=== PATIENT | female | born 1980 | race Caucasian/White ===

== ENCOUNTER 2022-06-19 07:40 | Outpatient (CLI) | payer BC, SELFPAY ==
[2022-06-19 09:41] LABS: Hematocrit 41.7 % (37.0-47.0); Hemoglobin 13.9 g/dL (12.0-15.0); Mean Corpuscular HGB Conc 33.3 g/dl (32-36); Mean Corpuscular Hemoglobin 29.8 pg (26-34); Mean Corpuscular Volume 89.5 fl (80-100); Mean Platelet Volume 9.6 fl (7.4-10.4); Platelet Count Result 393 k/mm3 (150-375); Red Blood Count 4.66 M/mm3 (4.2-5.4); Red Cell Distribution Width 13.2 % (11.5-14.5); White Blood Count 8.7 K/mm3 (4.5-10.0)
[2022-06-21 20:21] LABS: Prolactin 20.4 ng/mL (***)
== END 2022-06-19 07:41 | disposition home or self-care (01) ==
LOC: ANHLAB 07:42
PROVIDERS: Visit Provider Obstetrics & Gynecology
DX: N92.1 Excessive and frequent menstruation with irregular cycle (principal)
CPT/HCPCS: 36415; 84146; 85027

== ENCOUNTER 2022-08-10 06:56 | Outpatient (CLI) | payer BC, SELFPAY ==
[2022-08-10 08:22] LABS: Basophils Absolute Auto 0.1 K/mm3 (0.0-0.1); Basophils Percent Auto 1.2 % (0.2-1.2); Eosinophils Absolute Auto 0.7 K/mm3 (0-0.3); Hematocrit 41.6 % (37.0-47.0); Hemoglobin 14.1 g/dL (12.0-15.0); Immature Granulocyte Absolute 0.01 K/mm3 (0.00-0.031); Immature Granulocyte Percent A 0.1 % (0-0.5); Lymphocytes Absolute Auto 1.31 K/mm3 (0.9-3.2); Lymphocytes Percent Auto 19.6 % (18.3-44.2); Mean Corpuscular HGB Conc 33.9 g/dl (32-36); Mean Corpuscular Hemoglobin 29.9 pg (26-34); Mean Corpuscular Volume 88.1 fl (80-100); Mean Platelet Volume 9.1 fl (7.4-10.4); Monocytes Absolute Auto 0.5 K/mm3 (0.1-0.6); Monocytes Percent Auto 6.7 % (2.6-8.5); Neutrophils Absolute Auto 4.2 K/mm3 (1.3-6.7); Neutrophils Percent Auto 62.4 % (45.5-73.1); Platelet Count Result 422 k/mm3 (150-375); Red Blood Count 4.72 M/mm3 (4.2-5.4); Red Cell Distribution Width 13.3 % (11.5-14.5); White Blood Count 6.7 K/mm3 (4.5-10.0)
== END 2022-08-10 06:57 | disposition home or self-care (01) ==
PROVIDERS: PCP Internal Medicine; Visit Provider Internal Medicine Hematology & Oncology
DX: D47.3 Essential (hemorrhagic) thrombocythemia (principal)
CPT/HCPCS: 36415; 85025

== ENCOUNTER 2022-08-21 07:49 | Outpatient (CLI) | payer BC, SELFPAY ==
--- NOTE | 2022-08-21 08:00 | ECG_ITS ---
Measurements Intervals [place] Rate: 69 P: 19 NE: 148 QRS: -17 QRSD: 120 T: 18 QT: 392 QTc: 421 Interpretive Statements SINUS RHYTHM RIGHT BUNDLE BRANCH BLOCK BASELINE ARTIFACT- I, II, III, AVL, AVF ABNORMAL ECG NO PREVIOUS ECG AVAILABLE FOR COMPARISON Electronically Signed On 08-21-2022 8:23:05 CDT by Ever Iverson D.O.
== END 2022-08-21 07:50 | disposition home or self-care (01) ==
LOC: ANHSURGERY 08:01
PROVIDERS: PCP Internal Medicine; Visit Provider Obstetrics & Gynecology
DX: N92.1 Excessive and frequent menstruation with irregular cycle (principal); E78.00 Pure hypercholesterolemia, unspecified; Z01.818 Encounter for other preprocedural examination; I45.10 Unspecified right bundle-branch block
CPT/HCPCS: 36415; 86850; 86900; 86901; 93005

== ENCOUNTER 2022-08-23 01:08 | Day surgery (SDC) | payer BC, SELFPAY ==
[2022-08-17 11:28] VITALS: BMI 39.6
--- NOTE | 2022-08-17 11:39 | PC.NURSE ---
Report to the Outpatient Waiting Room, entrance under the green pavilion located off [facility], at time 8:00 on date 08/23/22. OR Time: 10:00. Time changes happen often and if your time is changed the preop area will call you the afternoon before. - You and your visitor will be asked to self-screen and do not enter if you have any COVID symptoms. - Only one visitor and NO children visitors are allowed at this time. YOU WILL BE ALLOWED TO HAVE 2 VISITORS AT A TIME ONCE YOU ARE IN YOUR ROOM AFTER SURGERY. - The patient visitor is requested to leave or wait in car when not with patient due to restrictions. - A mask is required within the hospital. Patients may have clear liquids (water, carbonated beverages, clear teas, apple juice) until 3 hours prior to surgery (7:00) with a maximum of 20 ounces. - No food from midnight until time of surgery Take the following medications with a SIP of water the morning of surgery: BUPROPION, LAMOTRIGINE, PROPRANOLOL Medications to discontinue per physician: ASPIRIN Date to take last dose: PER DR. HYMAN Please no make-up, nail tajik, hairspray, perfume, deodorant, or body powder the day of surgery. No jewelry (including any body piercings) or valuables the day of surgery, leave them at home. Please take a shower or bath the night before, or the morning of, surgery with an antibacterial soap. Wear comfortable, loose fitting clothing. - Jewelry must be removed prior to entering the operating room. Rings and piercings that are not removed may be cut off. - The hospital will not accept responsibility for valuables. - Please leave all valuables, including medications, at home the day of surgery. If you are going home after surgery, a licensed charter bus driver must drive you home. - NO public transportation without another adult. - We recommend that an adult stay with you for 24 hours following discharge. - We also recommend that you do not drive, make important decision, drink alcoholic beverages, or take any drugs that were not prescribed by your health care provider for at least 24 hours after your discharge time. Follow any additional instructions given to you from your surgeon. If you or anyone in your household have experienced Covid symptoms in the past week, please notify your surgeon or the nurse liaison at the phone number below for possible testing. Telephone instructions given to PT - NELLY CHUCKIE and asked if any additional questions and then verbalized understanding. Patient advised to call surgeon office or pre surgery nurse liaison [phone] if any additional questions.
--- NOTE | 2022-08-22 15:32 | PM.IMHP ---
H&P: HPI History of Present Illness Date/Time: 08/22/22 15:32 41-year-old female presents for complaints of heavy menstrual cycles with cramping and clotting as well as menstrual migraines. She states she has dealt with migraines for over 10 years has been on multiple courses of therapy including medical management as well as control pills, the control pills did not help her made her feel very poorly and therefore she stopped these years ago and does not consider this an option for her. She also relates cycles 7-10 days with 4-5 days very heavy with the clotting and cramping as noted above. Both of these issues cause her to miss work and social activities as well. also of note she has had a DVT with continued good results from that procedure. Chief Complaint: Menometrorrhagia Review of Systems Review of Systems: All systems reviewed & are unremarkable except as noted in HPI and below PMFSH Past Medical History Medical History Anxiety and depression High cholesterol Migraines Surgical History Surgical History H/O tubal ligation History of gynecological procedure urethral sling Hx of cholecystectomy Social History Social History Smoking status: Never smoker Alcohol intake: never Substance use: former Substance use type: marijuana Other substance usage details: 1-2 x week Last use: 08/03/22 Additional living arrangements comments: Additional occupation/education comments: customer service Gender identity (if verbalized by the patient): Female Sexual Orientation (if Verbalized by the Patient): Straight or Heterosexual Spiritual care concerns: No Meds Home Medications and Allergies Home Medications Medication Instructions Recorded Confirmed Type aspirin 81 mg chewable tablet 81 mg PO DAILY 06/12/22 08/17/22 History bupropion HCl 300 mg 24 hr tablet, 300 mg PO QAM 06/12/22 08/17/22 History extended release lamotrigine 100 mg tablet 100 mg PO DAILY 06/12/22 08/17/22 History propranolol 10 mg tablet 10 mg PO Q12H 06/12/22 08/17/22 History Allergies Allergy/AdvReac Type Severity Reaction Status Date / Time codeine Allergy Intermediate Hives Verified 08/17/22 11:27 amoxicillin Allergy Mild Hives Verified 08/17/22 11:27 Exam Const: General: cooperative, healthy appearing and comfortable Resp: Effort & Inspection: normal respiratory effort Auscultation: clear to auscultation bilaterally Cardio: Rate: regular rate Rhythm: regular rhythm GI: Inspection: normal to inspection Auscultation: normal bowel sounds : External Female Exam: normal external appearance Speculum Exam - Vagina: normal appearance of the vagina Speculum Exam - Cervix: normal appearance of the cervix Bimanual exam- vagina & uterus: Uterine tenderness Bimanual Exam- Adnexa, other: normal adnexae Assessment and Plan Assessment and plan (1) Menometrorrhagia: Code(s): N92.1 - Excessive and frequent menstruation with irregular cycle Status: Acute (2) Dysmenorrhea: Code(s): N94.6 - Dysmenorrhea, unspecified Status: Acute (3) Menstrual migraine: Code(s): G43.829 - Menstrual migraine, not intractable, without status migrainosus Status: Acute Plan multiple options have been discussed at this point patient declines any hormonal treatments due to feeling poorly on these in the past. Also we discussed progesterone only hormonal treatment but she states that she is having a lot of cramping and discomfort it without her cycle and she is not interested in this either. Patient also is interested in bilateral salpingo oophorectomy for her migraines. I have discussed With her at length the risk of menopause at her early age, but she states she feels so poorly and missing time from work that t
[2022-08-23] VITALS (11 sets, daily range): BP systolic 119–131; BP diastolic 70–83; PULSE 62–102; RESP 14–20; TEMP 36.5–37.1; O2SAT 94–100
--- NOTE | 2022-08-23 07:11 | WPDHPUPDATE1 ---
History and Physical Update Update Date/Time: 08/23/22 07:11 History and Physical has been reviewed, including an updated exam of the patient. There are NO changes in the patient's condition. Risks, benefits, and alternatives have been discussed and questions answered. Patient agrees to proceed with procedure.
[2022-08-23] MEDS: LACTATED RINGERS 1,000 ML 30 ML IV CONT ×2 (08:35→10:56)
[2022-08-23] MEDS: ACETAMINOPHEN 500 MG TABLET 1000 MG PO (08:41)
[2022-08-23] MEDS: KETOROLAC 15 MG/ML VIAL (*BKC) IV PUSH (08:41)
[2022-08-23] MEDS: SCOPOLAMINE 1.5 MG PATCH TRANSDERM (08:43)
--- NOTE | 2022-08-23 09:18 | P.PNAN_ITS ---
Anes - Initial Pre Proc Eval Procedure: Operation Date: 08/23/22 10:00 Proposed Procedures p Robotic Assisted Total Laparoscopic Hysterectomy, Bilateral Salpingo- Oophorectomy - Uriel Trejo MD Date/Time: 08/23/22 09:18 Surgeon: Uriel Trejo MD Pre Op Diagnosis: menometrorrhagia Patient Data Age: 42 Gender: F Height: 1.57 m Weight: 95.6 kg Last Vital Signs Temp 98.0 F 08/23/22 08:13 Pulse 84 08/23/22 08:13 Resp 18 08/23/22 08:13 BP 130/81 08/23/22 08:13 Pulse Ox 98 08/23/22 08:13 O2 Del Method Room Air 08/23/22 08:13 Allergies Allergy/AdvReac Type Severity Reaction Status Date / Time codeine Allergy Intermediate Hives Verified 08/23/22 08:11 amoxicillin Allergy Mild Hives Verified 08/23/22 08:11 Home Medications Medication Instructions Recorded Confirmed Type aspirin 81 mg chewable tablet 81 mg PO DAILY 06/12/22 08/23/22 History bupropion HCl 300 mg 24 hr tablet, 300 mg PO QAM 06/12/22 08/23/22 History extended release lamotrigine 100 mg tablet 100 mg PO DAILY 06/12/22 08/23/22 History propranolol 10 mg tablet 10 mg PO Q12H 06/12/22 08/23/22 History Patient hx anesthesia problems: post op nausea/vomiting Family hx anesthesia problems: none Results Review: All pre-operative results and documents have been reviewed as part of the pre- operative evaluation. [facility], [facility] Past Medical History Medical History Anxiety and depression High cholesterol Migraines Surgical History Surgical History H/O tubal ligation History of gynecological procedure urethral sling Hx of cholecystectomy Social History Social History Smoking status: Never smoker Alcohol intake: never Substance use: current Substance use type: marijuana Other substance usage details: 1-2 x week Last use: 08/03/22 Living arrangements: with family Additional living arrangements comments: Additional occupation/education comments: customer service Gender identity (if verbalized by the patient): Female Sexual Orientation (if Verbalized by the Patient): Straight or Heterosexual Spiritual care concerns: No Anes - Eval Final PreProcedure Day of Procedure 08/23/22 09:18 Patient weight: obese Heart: regular rate and rhythm Lungs: clear to auscultation Airway: Mallampati scale class II Neurological: alert and oriented Last oral intake: >/= 8 hours ASA classification: III Emergent: no Anesthetic plan: proceed Anesthesia type and monitoring: general ETT and standard monitoring Results Review: All pre-operative results and documents have been reviewed as part of the pre- operative evaluation. Informed Consent: The patient's anesthetic plan and its attendant risks and benefits were discussed with the patient/family/POA. Questions were solicited and answers provided to the satisfaction of the patient/family/POA.
[2022-08-23] MEDS: ceFAZolin 2 GM/D5W 50 ML 2 GM/50 ML BAG IVPB (09:26)
--- NOTE | 2022-08-23 10:45 | W.PM.PROC2 ---
Procedure Note - Detailed Date of Procedure 08/23/22 Pre-op Diagnosis 1. Menometrorrhagia 2. Dysmenorrhea Post-op Diagnosis Same Procedure Performed 1. Robotic assisted laparoscopic total hysterectomy 2. Robotic assisted laparoscopic bilateral salpingo-oophorectomy Surgeon Uriel Trejo MD Anesthesia General Findings Uterus mildly enlarged, tubes and ovaries noted without abnormality. Description of Procedure Patient prepped and draped in usual manner for this procedure. Cervical instruments were placed for mobility later in the case. Attention was then placed the abdomen and trocar sites were marked and placed under direct visualization. The DA Radha system was tested the trocars instruments were placed. Surgeon moved to the console. The round ligaments were cauterized and cut bilaterally the bladder flap was developed without difficulty. Posterior leaf of the broad ligament was also reflected to ladder uterine vessels be skeletonized. Right infundibulum pelvic ligament was cauterized and cut to remove the vascular supply to the right ovary. The uterine vessels then skeletonized cauterized and cut a posterior colpotomy incision this was carried circumferentially to allow the uterus to be delivered into the vagina with the right tube and ovary. At this point the left infundibulopelvic ligament was cauterized cut and the tube and ovary were placed into the posterior vagina. The vaginal cuff was then closed using V lock suture from the right angle to midline and from the left and to midline with good approximation hemostasis noted. Irrigation was undertaken and there was no bleeding. Nory was placed empirically over the vaginal cuff. Gas allowed escape incisions approximating 4-0 Monocryl after the instruments removed the patient was sent to recovery in stable condition. Estimated Blood Loss 50 Drains No Packing No Pathology Yes Complications No immediate complications Condition Stable Disposition PACU [facility] Billing Surgery - Charge Forward: Surgery Billing
[2022-08-23] MEDS: fentaNYL CITRATE INJ (*CRX) 100 MCG/2 ML VIAL 25 MCG IV PUSH ×2 (11:35→11:38)
[2022-08-23] MEDS: HYDROcodone/acetaminophen (*CRX) 5-325 MG TABLET 1 TAB PO ×2 (13:42→19:59)
[2022-08-23] MEDS: KETOROLAC 30 MG/ML VIAL (*BKC) IV PUSH ×2 (13:43→19:59)
[2022-08-23] MEDS: PROPRANOLOL HCL 10 MG TABLET PO ×2 (13:46→19:59)
[2022-08-23] MEDS: HYDROcodone/acetaminophen (*CRX) 10-325 MG TABLET 1 TAB PO (17:35)
[2022-08-23] MEDS: lamoTRIgine 100 MG TABLET PO (19:59)
[2022-08-24 00:15] VITALS: BP 101/59; PULSE 60; RESP 16; TEMP 36.8; O2SAT 99
[2022-08-24] MEDS: HYDROcodone/acetaminophen (*CRX) 10-325 MG TABLET 1 TAB PO (00:15)
[2022-08-24] MEDS: HYDROcodone/acetaminophen (*CRX) 5-325 MG TABLET 1 TAB PO ×2 (04:14→08:35)
[2022-08-24 04:15] VITALS: BP 100/65; PULSE 63; RESP 18; TEMP 36.9
[2022-08-24] MEDS: IBUPROFEN 600 MG TABLET PO (04:15)
[2022-08-24 05:24] LABS: Basophils Absolute Auto 0.1 K/mm3 (0.0-0.1); Basophils Percent Auto 0.4 % (0.2-1.2); Eosinophils Absolute Auto 0.1 K/mm3 (0-0.3); Eosinophils Percent Auto 0.7 % (0-4.4); Hematocrit 39.8 % (37.0-47.0); Hemoglobin 13.1 g/dL (12.0-15.0); Immature Granulocyte Absolute 0.06 K/mm3 (0.00-0.031); Immature Granulocyte Percent A 0.4 % (0-0.5); Lymphocytes Absolute Auto 1.91 K/mm3 (0.9-3.2); Lymphocytes Percent Auto 13.4 % (18.3-44.2); Mean Corpuscular HGB Conc 32.9 g/dl (32-36); Mean Corpuscular Hemoglobin 29.8 pg (26-34); Mean Corpuscular Volume 90.5 fl (80-100); Mean Platelet Volume 9.4 fl (7.4-10.4); Monocytes Absolute Auto 0.9 K/mm3 (0.1-0.6); Monocytes Percent Auto 6.2 % (2.6-8.5); Neutrophils Absolute Auto 11.3 K/mm3 (1.3-6.7); Neutrophils Percent Auto 78.9 % (45.5-73.1); Platelet Count Result 464 k/mm3 (150-375); Red Cell Distribution Width 13.5 % (11.5-14.5); White Blood Count 14.3 K/mm3 (4.5-10.0)
[2022-08-24] MEDS: SIMETHICONE 80 MG TAB.CHEW PO (08:34)
[2022-08-24 08:35] VITALS: BP 100/58; PULSE 62; RESP 16; TEMP 36.8; O2SAT 95
[2022-08-24] MEDS: PROPRANOLOL HCL 10 MG TABLET PO (08:35)
== END 2022-08-24 10:20 | disposition home or self-care (01) ==
LOC: ANHSURGERY 08:44 → ANHOB2 08-24 07:41 → ANHLDR 08-24 19:16
PROVIDERS: PCP Internal Medicine; Visit Provider Obstetrics & Gynecology
PROC: (CPT 58552; principal; 2022-08-23 10:00)
DX: N92.1 Excessive and frequent menstruation with irregular cycle (principal); N94.6 Dysmenorrhea, unspecified; G43.829 Menstrual migraine, not intractable, without status migrainosus
CPT/HCPCS: 58552; 36415; 85025; 88307; 99199; A9270; J0330; J0690; J1100; J1885; J2250; J2405; J2704; J3010; J7030; J7120

== ENCOUNTER 2023-02-06 14:08 | Outpatient (CLI) | payer BC, SELFPAY ==
[2023-02-06 14:52] LABS: Basophils Absolute Auto 0.1 K/mm3 (0.0-0.1); Basophils Percent Auto 0.9 % (0.2-1.2); Eosinophils Absolute Auto 0.7 K/mm3 (0-0.3); Hematocrit 42.4 % (37.0-47.0); Hemoglobin 14.1 g/dL (12.0-15.0); Immature Granulocyte Absolute 0.02 K/mm3 (0.00-0.031); Immature Granulocyte Percent A 0.3 % (0-0.5); Lymphocytes Percent Auto 21.3 % (18.3-44.2); Mean Corpuscular HGB Conc 33.3 g/dl (32-36); Mean Corpuscular Hemoglobin 29.4 pg (26-34); Mean Corpuscular Volume 88.5 fl (80-100); Mean Platelet Volume 8.7 fl (7.4-10.4); Monocytes Absolute Auto 0.5 K/mm3 (0.1-0.6); Monocytes Percent Auto 6.1 % (2.6-8.5); Neutrophils Percent Auto 62.4 % (45.5-73.1); Platelet Count Result 425 k/mm3 (150-375); Red Blood Count 4.79 M/mm3 (4.2-5.4); Red Cell Distribution Width 13.6 % (11.5-14.5)
== END 2023-02-06 14:09 | disposition home or self-care (01) ==
PROVIDERS: PCP Internal Medicine; Visit Provider Internal Medicine Hematology & Oncology
DX: D47.3 Essential (hemorrhagic) thrombocythemia (principal)
CPT/HCPCS: 36415; 85025

== ENCOUNTER 2023-05-14 06:39 | Emergency (ER) | payer BC, SELFPAY ==
[2023-05-14 06:42] VITALS: BP 148/109; PULSE 95; RESP 17; TEMP 36.2; O2SAT 99
[2023-05-14 07:18] VITALS: BP 130/92; PULSE 74; RESP 15; O2SAT 99
[2023-05-14] MEDS: SODIUM CHLORIDE 0.9% IV 1,000 ML 999 ML IV CONT (07:22)
[2023-05-14] MEDS: diphenhydrAMINE HCl INJ 50 MG/ML VIAL 25 MG IV PUSH (07:23)
[2023-05-14] MEDS: KETOROLAC 30 MG/ML VIAL (*BKC) IV PUSH (07:23)
[2023-05-14] MEDS: METOCLOPRAMIDE HCL INJ 10 MG/2 ML VIAL IV PUSH (07:23)
--- NOTE | 2023-05-14 07:49 | ED.GENADULT ---
HPI - General Adult General Chief complaint: Headache Stated complaint: Migraine, n/v Time Seen by Provider: 05/14/23 06:56 History of Present Illness HPI narrative: Patient is a 42-year-old female with history of migraines who presents ER with a headache. Frontal and sharp. Somewhat over the left eye. Associated with photophobia and phonophobia. Began yesterday evening and intensified today. No fevers or chills or sweats. She has had some nausea and vomiting. No known exacerbating factors. Patient tried taking ibuprofen which did not help. She also took a Vicodin which she then vomited. Related Data Home Medications Medication Instructions Recorded Confirmed aspirin 81 mg chewable tablet 81 mg PO DAILY 06/12/22 12/13/22 bupropion HCl 300 mg 24 hr tablet, 300 mg PO QAM 06/12/22 12/13/22 extended release lamotrigine 100 mg tablet 100 mg PO DAILY 06/12/22 12/13/22 propranolol 10 mg tablet 10 mg PO Q12H 06/12/22 12/13/22 Allergies Allergy/AdvReac Type Severity Reaction Status Date / Time codeine Allergy Intermediate Hives Verified 05/14/23 07:19 amoxicillin Allergy Mild Hives Verified 05/14/23 07:19 Review of Systems Review of Systems: All systems reviewed & are unremarkable except as noted in HPI and below Constitutional: Constitutional: Denies chills and Denies fever(s) Eyes: Eyes: Reports photophobia ENT: Denies nasal congestion and Denies sore throat Gastrointestinal: Gastrointestinal: Denies abdominal pain, Reports nausea and Reports vomiting Neurologic: Denies syncope, Reports headache(s), Denies focal weakness and Denies numbness PMF Past Medical History Medical History (Updated 05/14/23 @ 09:32 by Miky Adams MD) Anxiety and depression High cholesterol Migraines Screening mammogram, encounter for Surgical History Surgical History History of cholecystectomy (~2010) History of robot-assisted laparoscopic hysterectomy (08/23/22) RA TLH w/BSO History of stress incontinence procedure using tension free vaginal tape (~10/27/17) History of tubal ligation (09/30/09) Family History Family History Grandparent No problems noted. Father Cerebrovascular accident Hypertension Mother Hypertension Social History Social History (Updated 12/13/22 @ 09:05 by Kita Javed MA) Smoking status: Never smoker Alcohol intake: never Substance use: former Substance use type: marijuana Other substance usage details: 1-2 x week Last use: 08/03/22 Living arrangements: with family Additional living arrangements comments: Occupation/Education: occupation Additional occupation/education comments: customer service Gender identity (if verbalized by the patient): Female Sexual Orientation (if Verbalized by the Patient): Straight or Heterosexual Spiritual care concerns: No Exam Narrative: GENERAL: Uncomfortable appearing, laying in bed with a towel over her eyes, well-nourished. HEAD: Normocephalic, atraumatic. ENT: Mucous membranes moist. CHEST: Clear to auscultation. No respiratory distress. HEART: Regular rate and rhythm. Normal peripheral pulses. ABDOMEN: Soft, nontender, nondistended. EXTREMITIES: Normal range of motion. No edema. SKIN: Warm, dry, no rash. NEURO: Alert and oriented x3. PSYCH: Normal mood and affect. Course Course Emergency Course: Symptoms improved with Reglan/Benadryl/Toradol. Discharge home. Vital Signs Vital signs: Vital Signs Temperature 97.1 F L 05/14/23 06:42 Pulse Rate 95 05/14/23 06:42 Respiratory Rate 17 05/14/23 06:42 Blood Pressure 148/109 H 05/14/23 06:42 Pulse Oximetry 99 05/14/23 06:42 Oxygen Delivery Room Air 05/14/23 06:42 Temperature 97.1 F L 05/14/23 06:42 Pulse Rate 69 05/14/23 08:02 Respiratory Rate 17 05/14/23 08:02 Blood Pressure 125/91 H 05/14/23 08:0
[2023-05-14 08:02] VITALS: BP 125/91; PULSE 69; RESP 17; O2SAT 98
[2023-05-14 09:52] VITALS: BP 105/66; PULSE 84; RESP 17; O2SAT 97
== END 2023-05-14 09:53 | disposition home or self-care (01) ==
PROVIDERS: Emergency Provider Emergency Medicine; PCP Internal Medicine
DX: G43.909 Migraine, unspecified, not intractable, without status migrainosus (principal); E78.00 Pure hypercholesterolemia, unspecified; F41.9 Anxiety disorder, unspecified; F32.A Depression, unspecified; Z90.49 Acquired absence of other specified parts of digestive tract; Z90.710 Acquired absence of both cervix and uterus; Z90.722 Acquired absence of ovaries, bilateral; Z90.79 Acquired absence of other genital organ(s)
CPT/HCPCS: 96361; 96374; 96375; 99284; J1200; J1885; J2765; J7030

== ENCOUNTER 2023-08-02 23:26 | Emergency (ER) | payer OTHER, SELFPAY ==
[2023-08-02 23:30] VITALS: BP 132/75; PULSE 80; RESP 20; TEMP 36.7; O2SAT 99
[2023-08-03 00:40] LABS: Strep Group A RT-PCR NOT DETECTED (Negative)
[2023-08-03 00:51] LABS: Influenza A QL RT-PCR Negative (Negative); Influenza B QL RT-PCR Negative (Negative); SARS-CoV-2 RNA PCR Negative (Negative)
--- NOTE | 2023-08-03 01:27 | ED.GENADULT ---
HPI - General Adult General Chief complaint: Upper Respiratory Infection Stated complaint: sore throat Time Seen by Provider: 08/03/23 00:14 Source: patient Mode of arrival: ambulatory Limitations: no limitations History of Present Illness HPI narrative: This is a 42-year-old female with PMH of anxiety and depression, high cholesterol, migraines who presents to the ED with chief complaint of sore throat intermittently for the past week. She also reports associated malaise. Reports that she was initially seen by [facility] and was given a prescription for azithromycin for possible strep but never had any strep testing done. She thinks it may have helped for a little bit but sore throat is returning today. Denies dysphagia, drooling, shortness of breath, chest pain, nausea, vomiting, fevers, chills. Denies any known sick contacts. Related Data Home Medications Medication Instructions Recorded Confirmed aspirin 81 mg chewable tablet 81 mg PO DAILY 06/12/22 12/13/22 bupropion HCl 300 mg 24 hr tablet, 300 mg PO QAM 06/12/22 12/13/22 extended release lamotrigine 100 mg tablet 100 mg PO DAILY 06/12/22 12/13/22 propranolol 10 mg tablet 10 mg PO Q12H 06/12/22 12/13/22 Allergies Allergy/AdvReac Type Severity Reaction Status Date / Time codeine Allergy Intermediate Hives Verified 08/03/23 00:08 amoxicillin Allergy Mild Hives Verified 08/03/23 00:08 Review of Systems Review of Systems: All systems as dictated in [facility] Past Medical History Medical History (Updated 08/03/23 @ 01:29 by James Hairston PA-C) Anxiety and depression High cholesterol Migraines Screening mammogram, encounter for Surgical History Surgical History History of cholecystectomy (~2010) History of robot-assisted laparoscopic hysterectomy (08/23/22) RA TLH w/BSO History of stress incontinence procedure using tension free vaginal tape (~10/27/17) History of tubal ligation (09/30/09) Family History Family History Grandparent No problems noted. Father Cerebrovascular accident Hypertension Mother Hypertension Social History Social History (Updated 12/13/22 @ 09:05 by AJIT Meredith Smoking status: Never smoker Alcohol intake: never Substance use: former Substance use type: marijuana Other substance usage details: 1-2 x week Last use: 08/03/22 Living arrangements: with family Additional living arrangements comments: Occupation/Education: occupation Additional occupation/education comments: customer service Gender identity (if verbalized by the patient): Female Sexual Orientation (if Verbalized by the Patient): Straight or Heterosexual Spiritual care concerns: No Exam Narrative: GENERAL: Well-appearing, well-nourished, and in no acute distress. HEAD: Normocephalic, atraumatic. EYES: PERRLA and EOMI. ENT: Posterior oropharynx is slightly erythematous without edema. Nares clear, no rhinorrhea or epistaxis. Mucous membranes moist. Oropharynx without tonsillar hypertrophy exudate or other lesions. Floor the mouth is intact. No drooling or trismus present. NECK: Supple. Mild right-sided anterior cervical chain lymphadenopathy present. CHEST: No respiratory distress. Clear to auscultation. No wheezes rales or rhonchi HEART: Regular rate and rhythm. No murmur heard. Normal peripheral pulses. ABDOMEN: Soft, nontender, nondistended, normal active bowel sounds. MSK: Normal range of motion. No edema. SKIN: Warm, dry, no rash. NEURO: Alert and oriented x3. No focal deficits. PSYCH: Normal mood and affect. Course Vital Signs Vital signs: Vital Signs Temperature 98.0 F 08/02/23 23:30 Pulse Rate 80 08/02/23 23:30 Respiratory Rate 20 08/02/23 23:30 Blood Pressure 132/75 08/02/23 23:30 Pulse Oximetry 99 08/02/23 23:30 Oxygen Delivery Room Air 08/02/23 2
== END 2023-08-03 01:39 | disposition home or self-care (01) ==
PROVIDERS: Emergency Medicine; Emergency Provider Physician Assistant; PCP Internal Medicine
DX: J06.9 Acute upper respiratory infection, unspecified (principal); Z20.822 Contact with and (suspected) exposure to COVID-19; F41.9 Anxiety disorder, unspecified; F32.A Depression, unspecified; E78.00 Pure hypercholesterolemia, unspecified; Z90.49 Acquired absence of other specified parts of digestive tract; Z90.710 Acquired absence of both cervix and uterus; Z90.722 Acquired absence of ovaries, bilateral; Z90.79 Acquired absence of other genital organ(s); Z79.82 Long term (current) use of aspirin
CPT/HCPCS: 87636; 87651; 99283

== ENCOUNTER 2023-09-14 08:02 | Outpatient (CLI) | payer BC, SELFPAY ==
[2023-09-14 10:42] LABS: CRP 1.8 mg/dL (<1.0)
[2023-09-14 12:15] LABS: Erythrocyte Sedimentation Rate 26 mm/hr (0-20)
[2023-09-20 12:01] LABS: Block/Specimen ID Not Given; CALR Exon 9 Mutation Not Detected (Not Detected); CSF3R Exon 14/17 Mutation Not Detected (Not Detected); JAK2 Exon 12 Mutation Not Detected (Not Detected); JAK2 V617F Mutation Not Detected (Not Detected); MPL Exon 10 Mutation Not Detected (Not Detected); Specimen Source Blood
== END 2023-09-14 08:03 | disposition home or self-care (01) ==
PROVIDERS: PCP Internal Medicine; Visit Provider Internal Medicine Hematology & Oncology
DX: D47.3 Essential (hemorrhagic) thrombocythemia (principal)
CPT/HCPCS: 36415; 81219; 81270; 81279; 81339; 81479; 85652; 86140

== ENCOUNTER 2023-12-21 12:18 | Outpatient (CLI) | payer BC, SELFPAY ==
[2023-12-21 12:52] LABS: Basophils Absolute Auto 0.1 K/mm3 (0.0-0.1); Basophils Percent Auto 0.9 % (0.2-1.2); Eosinophils Absolute Auto 0.7 K/mm3 (0-0.3); Eosinophils Percent Auto 7.3 % (0-4.4); Hematocrit 43.2 % (37.0-47.0); Hemoglobin 13.9 g/dL (12.0-15.0); Immature Granulocyte Absolute 0.03 K/mm3 (0.00-0.031); Immature Granulocyte Percent A 0.3 % (0-0.5); Lymphocytes Absolute Auto 1.75 K/mm3 (0.9-3.2); Lymphocytes Percent Auto 17.9 % (18.3-44.2); Mean Corpuscular HGB Conc 32.2 g/dl (32-36); Mean Corpuscular Hemoglobin 28.3 pg (26-34); Mean Platelet Volume 9.1 fl (7.4-10.4); Monocytes Absolute Auto 0.6 K/mm3 (0.1-0.6); Monocytes Percent Auto 5.7 % (2.6-8.5); Neutrophils Absolute Auto 6.6 K/mm3 (1.3-6.7); Neutrophils Percent Auto 67.9 % (45.5-73.1); Platelet Count Result 442 k/mm3 (150-375); Red Blood Count 4.91 M/mm3 (4.2-5.4); Red Cell Distribution Width 13.3 % (11.5-14.5); White Blood Count 9.8 K/mm3 (4.5-10.0)
[2023-12-21 13:14] LABS: Anion Gap 9 mmol/L (8-16); Blood Urea Nitrogen 12 mg/dL (7-17); Carbon Dioxide 27 mmol/L (22-30); Chloride 105 mmol/L (98-107); Estimated Glomerular Filt Rate > 60; Glucose 95 mg/dL (65-110); Potassium 3.8 mmol/L (3.4-5.0); Sodium 141 mmol/L (137-145)
== END 2023-12-21 12:19 | disposition home or self-care (01) ==
LOC: ANHLAB 12:21
PROVIDERS: PCP Internal Medicine; Visit Provider Internal Medicine Hematology & Oncology
DX: D75.838 Other thrombocytosis (principal)
CPT/HCPCS: 36415; 80048; 85025